=== PATIENT | female | born 1970 ===

== ENCOUNTER 2017-11-10 11:27 | Emergency (ER) | payer OTHER ==
[2017-11-10 11:40] VITALS: BMI 25.0
[2017-11-10 11:41] VITALS: BP 128/67; PULSE 97; RESP 20; TEMP 98.2; O2SAT 99
[2017-11-10 12:47] LABS: BASO % 0.4 % (0.0-2.0); EOS % 0.1 % (0.0-4.0); HEMOGLOBIN 12.9 g/dL (12.0-16.0); LYMPH # 2.7 K/uL (1.0-4.3); LYMPH % 28.4 % (20.0-40.0); MEAN CELL VOLUME 94.5 fl (81.0-99.0); MEAN CORPUSCULAR HEMOGLOBIN 32.4 pg (27.0-31.0); MEAN CORPUSCULAR HGB CONC 34.3 g/dL (33.0-37.0); MEAN PLATELET VOLUME 7.6 fl (7.2-11.7); MONO # 0.3 K/uL (0.0-0.8); MONO % 3.3 % (0.0-10.0); NEUT # 6.5 K/uL (1.8-7.0); NEUT % 67.8 % (50.0-75.0); RBC 3.98 Mil/uL (3.80-5.20); RED CELL DISTRIBUTION WIDTH 12.7 % (11.5-14.5); WHITE BLOOD COUNT 9.6 K/uL (4.8-10.8)
[2017-11-10 12:59] LABS: BLOOD UREA NITROGEN 14 mg/dl (7-17); CALCIUM 10.2 mg/dL (8.4-10.2); GFR AFRICAN-AMERICAN > 60; GFR NON-AFRICAN AMERICAN > 60
[2017-11-10 13:37] LABS: BARBITURATES, UR NEGATIVE (NEGATIVE); BENZODIAZEPINES, UR NEGATIVE (NEGATIVE); OPIATES, UR NEGATIVE (NEGATIVE); PHENCYCLIDINE, UR NEGATIVE (NEGATIVE)
[2017-11-10] MEDS ORDERED: Sodium Chloride 0.9% 1,000 ML IV STA (13:42)
--- NOTE | 2017-11-10 14:37 | ED PDOC ---
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 States her symptoms have been disrupting her sleep and she has been feeling anxious due to her symptoms. She denies any shortness of breath, syncope , fever, cough. State she has been using Motrin without relief of symptoms. No injuries or trauma. Past Medical History Reviewed: Historical Data, Nursing Documentation, Vital Signs Vital Signs: Last Vital Signs Temp 98.2 F 11/10/17 11:40 Pulse 97 H 11/10/17 11:40 Resp 20 11/10/17 12:00 BP 128/67 11/10/17 11:40 Pulse Ox 99 11/10/17 11:40 - Medical History PMH: Anxiety, Depression Denies: Diabetes, Hepatitis, HIV, HTN, Seizures, Sexually Transmitted Disease - Surgical History Other surgeries: Breast implants and removal. - Family History Family History: States: Unknown Family Hx - Social History Alcohol: Occasional - Home Medications Home Medications: Ambulatory Orders Medication Instructions Recorded Famotidine [Pepcid] 1 tab PO BID #30 tab 01/24/15 Ondansetron [Zofran Odt] 4 mg PO ASDIR PRN #15 odt 09/24/15 traZODone [trazODONE HYDROCHLORIDE] 50 mg PO ASDIR #15 tab 09/24/15 Cyclobenzaprine [Cyclobenzaprine 10 mg PO Q8 PRN #9 tab 11/10/17 HCl] Naproxen [Naprosyn] 500 mg PO BID PRN #14 tablet 11/10/17 - Allergies Allergies/Adverse Reactions: Allergies Allergy/AdvReac Type Severity Reaction Status Date / Time No Known Allergies Allergy Unverified 01/24/15 04:26 Review of Systems ROS Statement: Except As Marked, All Systems Reviewed And Found Negative (as per HPI) Constitutional: Negative for: Fever Respiratory: Negative for: Cough Musculoskeletal: Positive for: Neck Pain (left sided), Shoulder Pain (left sided ), Arm Pain (left sided) Neurological: Negative for: Other (syncope) Psych: Positive for: Anxiety Physical Exam - Reviewed Nursing Documentation Reviewed: Yes Vital Signs Reviewed: Yes - Physical Exam Appears: Positive for: Non-toxic Head Exam: Positive for: ATRAUMATIC, NORMAL INSPECTION, NORMOCEPHALIC Skin: Positive for: Normal Color Eye Exam: Positive for: Normal appearance Neck: Positive for: Supple (+ left paraspinal tenderness) Cardiovascular/Chest: Positive for: Regular Rate, Rhythm Respiratory: Positive for: Normal Breath Sounds. Negative for: Wheezing Extremity: Positive for: Tenderness (left trapezius hypertenicity, tenderness with ROM of left shoulder). Negative for: Deformity, Swelling Neurologic/Psych: Positive for: Alert, Oriented, Mood/Affect (anxious appearing) . Negative for: Motor/Sensory Deficits - Laboratory Results Result Diagrams: 11/10/17 12:40 11/10/17 12:40 - ECG O2 Sat by Pulse Oximetry: 99 (RA) Pulse Ox Interpretation: Normal Medical Decision Making Medical Decision Making: Impression: Musculoskeletal pain Plan: -- CT C-spine w/o contrast -- Labs -- EKG -- Toradol 30mg IV -- Ativan 1mg IV -- Tylenol 650 mg PO -- IV Fluids labs reviewed and unremarkable Accession No. : [id number] Patient Name / ID : SUZY ANDREA / [id number] Exam Date : 11/10/2017 14:20:45 ( Approved ) Study Comment : Sex / Age : F / 47Y Creator : Uri Meraz MD Dictator : Uri Meraz MD Business Solution Analyst : Vascular Nurse : Uri Meraz MD Approver2 : Report Date : 11/10/2017 14:50:11 My Comment : PROCEDURE: CT scan cervical spine 11/10/2017 HISTORY: Neck pain. COMPARISON: No prior study available for comparison TECHNIQUE: Contiguous helical/transaxial computed tomography images were obtained of the cervical spine without the use of intravenous contrast. Coronal and sagittal reformatted images were created and reviewed. Radiation dose: Total exam DLP = 391.2 mGy-cm. This CT exam was performed using one or more of the following dose reduction techniques: Automated exposure control, adjustment of the mA and/or kV according to patient size, and/or use of iterative reconstruction technique. . FINDINGS: VERTEBRAE: The current study reveals no acute compression fractures no retropulsed fragments. Vertebral bodies exhibit normal stature. There is straightening of the normal cervical lordosis which could be due to patient positioning gantry however underlying element of muscle spasm may contribute. DISCS/SPINAL CANAL/NEURAL FORAMINA: Minor multilevel degenerative spondylosis. At the C6-C7 level, there is disc minor disc space narrowing. Moderate-sized central and left parasagittal disc herniation compresses the ventral surface of the thecal sac presumably compresses the ventral surface of the cord however due to streak and beam hardening artifact arising from dense clavicles and shoulder girdles evaluation somewhat limited. Central canal appears slightly narrowed at this level. Uncovertebral joints are slightly overgrown. Exit foramina appear adequate. At the C5-C6 level, there is disc space narrowing with small osteophytic ridge disk complex that minimally flattens the ventral surface of the thecal sac though does not cause significant canal stenosis. The overall central canal is adequate. Minimal degenerative changes of the uncovertebral joints. Exit foramina are also marginal to adequate. . At the C4-C5 level, there is adequate disc height. Small central and bilateral disc bulge flattens the ventral surface of the thecal sac though does not cause significant canal stenosis nor cord compression. The at exit foramina appear adequate. At the C3-C4 level, there is also minimal minimal disc space narrowing. Small central and bilateral disc bulge ridge complex flattens the ventral surface of the thecal sac and results in minimal canal narrowing. No significant cord compression so far as can be seen as streak and beam hardening artifact arising from dental amalgam limits evaluation of the canal. Exit foramina appear adequate. At the C2-C3 level, there minimal anterior disc space narrowing. Small central and bilateral disc bulge flattens the ventral surface of the thecal sac though does not cause canal stenosis nor cord compression. The exit foramina appear adequate. Narrowing. PARASPINAL SOFT TISSUES: Paraspinal soft tissues unremarkable OTHER FINDINGS: None. IMPRESSION: No acute fractures. Mild degenerative spondylosis multilevel degenerative spondylosis most notably affecting C6 C7 level where there is a moderate-sized central and left parasagittal disc herniation at compresses the ventral surface of the thecal sac. See above discussion for additional details and findings. 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 Followup neurosurgery/ [facility] connect for re-eval to assure no new radicular or neuro symptoms. Scribe Attestation: Documented by Georgie Monroe acting as a scribe for James Argueta III, DO. Provider Attestation: All medical record entries made by the Scribe were at my direction and personally dictated by me. I have reviewed the chart and agree that the record accurately reflects my personal performance of the history, physical exam, medical decision making, and the department course for this patient. I have also personally directed, reviewed, and agree with the discharge instructions and disposition. Disposition - Clinical Impression Clinical Impression: Bulging of cervical intervertebral disc, Neck pain, Radicular pain - Patient ED Disposition Is Patient to be Admitted: No Counseled Patient/Family Regarding: Studies Performed, Diagnosis, Need For Followup - Disposition Referrals: [facility] [Outside] Srini Reynolds MD [Staff Provider] - [facility] [place] [Outside] Disposition: Routine/Home Disposition Time: 15:29 Condition: STABLE Additional Instructions: Return to ER for any worse or new symptoms/\ Prescriptions: Cyclobenzaprine [Cyclobenzaprine HCl] 10 mg PO Q8 PRN #9 tab PRN Reason: Muscle Spasm Naproxen [Naprosyn] 500 mg PO BID PRN #14 tablet PRN Reason: Pain, Moderate (4-7) Instructions: Cervical Disc Herniation (ED), Cervical Radiculopathy (ED) Forms: [employer] (Tajik) Print Language: KAZAKH
--- NOTE | 2017-11-10 14:51 | CT ---
PROCEDURE: CT scan cervical spine 11/10/2017 HISTORY: Neck pain. COMPARISON: No prior study available for comparison TECHNIQUE: Contiguous helical/transaxial computed tomography images were obtained of the cervical spine without the use of intravenous contrast. Coronal and sagittal reformatted images were created and reviewed. Radiation dose: Total exam DLP = 391.2 mGy-cm. This CT exam was performed using one or more of the following dose reduction techniques: Automated exposure control, adjustment of the mA and/or kV according to patient size, and/or use of iterative reconstruction technique. . FINDINGS: VERTEBRAE: The current study reveals no acute compression fractures no retropulsed fragments. Vertebral bodies exhibit normal stature. There is straightening of the normal cervical lordosis which could be due to patient positioning gantry however underlying element of muscle spasm may contribute. DISCS/SPINAL CANAL/NEURAL FORAMINA: Minor multilevel degenerative spondylosis. At the C6-C7 level, there is disc minor disc space narrowing. Moderate-sized central and left parasagittal disc herniation compresses the ventral surface of the thecal sac presumably compresses the ventral surface of the cord however due to streak and beam hardening artifact arising from dense clavicles and shoulder girdles evaluation somewhat limited. Central canal appears slightly narrowed at this level. Uncovertebral joints are slightly overgrown. Exit foramina appear adequate. At the C5-C6 level, there is disc space narrowing with small osteophytic ridge disk complex that minimally flattens the ventral surface of the thecal sac though does not cause significant canal stenosis. The overall central canal is adequate. Minimal degenerative changes of the uncovertebral joints. Exit foramina are also marginal to adequate. . At the C4-C5 level, there is adequate disc height. Small central and bilateral disc bulge flattens the ventral surface of the thecal sac though does not cause significant canal stenosis nor cord compression. The at exit foramina appear adequate. At the C3-C4 level, there is also minimal minimal disc space narrowing. Small central and bilateral disc bulge ridge complex flattens the ventral surface of the thecal sac and results in minimal canal narrowing. No significant cord compression so far as can be seen as streak and beam hardening artifact arising from dental amalgam limits evaluation of the canal. Exit foramina appear adequate. At the C2-C3 level, there minimal anterior disc space narrowing. Small central and bilateral disc bulge flattens the ventral surface of the thecal sac though does not cause canal stenosis nor cord compression. The exit foramina appear adequate. Narrowing. PARASPINAL SOFT TISSUES: Paraspinal soft tissues unremarkable OTHER FINDINGS: None. IMPRESSION: No acute fractures. Mild degenerative spondylosis multilevel degenerative spondylosis most notably affecting C6 C7 level where there is a moderate-sized central and left parasagittal disc herniation at compresses the ventral surface of the thecal sac. See above discussion for additional details and findings.
[2017-11-10 15:14] LABS: SQUAMOUS EPITHIAL 10 /hpf (0-5); URINE BACTERIA RARE (<OCC); URINE BILIRUBIN NEGATIVE (NEGATIVE); URINE BLOOD NEGATIVE (NEGATIVE); URINE CLARITY CLOUDY (Clear); URINE COLOR YELLOW (YELLOW); URINE GLUCOSE (UA) NEG (Normal); URINE LEUKOCYTE ESTERASE TRACE Leu/uL (Negative); URINE NITRATE NEGATIVE (NEGATIVE); URINE PROTEIN NEGATIVE (NEGATIVE); URINE UROBILINOGEN 0.2-1.0 mg/dL (0.2-1.0)
--- NOTE | 2017-11-11 09:38 | CARD ---
APPROVED REPORT EKG Measurement Heart [id number] <Conclusion> Normal sinus rhythm Normal ECG
== END 2017-11-10 16:27 | disposition home or self-care (01) ==
LOC: H.ER 11:27
DX: M50.20 Other cervical disc displacement, unspecified cervical region (principal); M54.12 Radiculopathy, cervical region; F32.9 Major depressive disorder, single episode, unspecified; F41.9 Anxiety disorder, unspecified
CPT/HCPCS: 72125; 80048; 80324; 80345; 80346; 80349; 80353; 80358; 80361; 81003; 81025; 83992; 84484; 85025; 93005; 96374; 99283; J1885; J2060; J7040

== ENCOUNTER 2019-01-16 06:49 | Emergency (ER) | payer OTHER ==
[2019-01-16 06:54] VITALS: BP 108/68; PULSE 97; RESP 20; TEMP 99.3; O2SAT 100; BMI 26.5
--- NOTE | 2019-01-16 07:26 | ED PDOC ---
HPI: Abdomen Time Seen by Provider: 01/16/19 07:05 Chief Complaint (Provider): Abdominal Pain History Per: Patient History/Exam Limitations: no limitations Onset/Duration Of Symptoms: Days (x3) Current Symptoms Are (Timing): Still Present Location Of Pain/Discomfort: LLQ Quality Of Discomfort: Sharp Associated Symptoms: Nausea. denies: Vomiting, Diarrhea, Urinary Symptoms Additional Complaint(s): 48 year old female with no significant past medical history who is presenting to the ED for evaluation of sharp left lower quadrant abdominal pain ongoing for 3 days. Patient states that pain is associated with nausea but denies any vomiting, diarrhea, or urinary symptoms. She offers no other medical complaints at this time. Of note, patients LNMP was 2 years ago. PMD: none provided Last Menstral Period: 2 years ago Past Medical History Reviewed: Historical Data, Nursing Documentation, Vital Signs Vital Signs: Last Vital Signs Temp 99.3 F 01/16/19 06:53 Pulse 97 H 01/16/19 06:53 Resp 20 01/16/19 06:53 BP 108/68 01/16/19 06:53 Pulse Ox 100 01/16/19 06:53 - Medical History PMH: Anxiety, Depression Denies: Diabetes, Hepatitis, HIV, HTN, Seizures, Sexually Transmitted Disease - Surgical History Surgical History: No Surg Hx - Family History Family History: States: Unknown Family Hx - Social History Current smoker - smoking cessation education provided: No Alcohol: None Drugs: Denies - Immunization History Hx Tetanus Toxoid Vaccination: No Hx Influenza Vaccination: Yes Hx Pneumococcal Vaccination: No - Home Medications Home Medications: Ambulatory Orders Medication Instructions Recorded traZODone [trazODONE HYDROCHLORIDE] 50 mg PO ASDIR #15 tab 09/24/15 Cyclobenzaprine [Cyclobenzaprine 10 mg PO DAILY PRN #10 tab 02/09/18 HCl] Gabapentin 300 mg PO TID 02/09/18 Naproxen [Naprosyn] 500 mg PO BID PRN #14 tablet 02/09/18 Dicyclomine [Dicyclomine HCl] 10 mg PO Q8 #10 cap 01/16/19 - Allergies Allergies/Adverse Reactions: Allergies Allergy/AdvReac Type Severity Reaction Status Date / Time No Known Allergies Allergy Verified 02/09/18 16:43 Review of Systems ROS Statement: Except As Marked, All Systems Reviewed And Found Negative Gastrointestinal: Positive for: Nausea, Abdominal Pain. Negative for: Vomiting, Diarrhea Genitourinary Female: Negative for: Dysuria, Frequency, Hematuria Physical Exam - Reviewed Nursing Documentation Reviewed: Yes Vital Signs Reviewed: Yes - Physical Exam Appears: Positive for: Non-toxic, No Acute Distress Head Exam: Positive for: ATRAUMATIC, NORMAL INSPECTION, NORMOCEPHALIC Skin: Positive for: Normal Color, Warm, DRY Eye Exam: Positive for: EOMI, Normal appearance, PERRL Neck: Positive for: Normal Cardiovascular/Chest: Positive for: Regular Rate, Rhythm. Negative for: Murmur Respiratory: Positive for: Normal Breath Sounds. Negative for: Respiratory Distress Gastrointestinal/Abdominal: Positive for: Soft, Tenderness (to left lower quadrant ), Guarding. Negative for: Mass, Distended, Rebound Back: Positive for: Normal Inspection. Negative for: L CVA Tenderness, R CVA Tenderness, Vertebral Tenderness Extremity: Positive for: Normal ROM. Negative for: Deformity, Swelling Neurological/Psych: Positive for: Awake, Alert, Normal Tone, Oriented. Negative for: Motor/Sensory Deficits - Laboratory Results Result Diagrams: 01/16/19 07:40 01/16/19 07:40 - ECG O2 Sat by Pulse Oximetry: 100 (RA) Pulse Ox Interpretation: Normal Medical Decision Making Medical Decision Making: Time: 7:18 Impression: Abdominal Pain Plan: --Will Obtain blood work including CMP and CBC --CT Abd/Pelvis --Toradol 30 mg IVP --ED Urine Dipstick --ED Urine Scribe Attestation: Documented by Aylin Currie, acting as a scribe for Joaquin Cross MD. Provider Scribe Attestation: All medical record entries made by the Scribe were at my direction and personally dictated by me. I have reviewed the chart and agree that the record accurately reflects my personal performance of the history, physical exam, medical decision making, and the department course for this patient. I have also personally directed, reviewed, and agree with the discharge instructions and disposition. Disposition - Clinical Impression Clinical Impression: Colitis - Patient ED Disposition Is Patient to be Admitted: No Counseled Patient/Family Regarding: Studies Performed, Diagnosis, Need For Followup, Rx Given - Disposition Referrals: Non [facility] Provider, [Primary Care Provider] - Ad Salcido MD [Staff Provider] - Disposition: Routine/Home Disposition Time: 11:02 Condition: FAIR Prescriptions: Dicyclomine [Dicyclomine HCl] 10 mg PO Q8 #10 cap Instructions: Colitis Print Language: CONGOLESE
[2019-01-16 08:57] LABS: BASO % 0.3 % (0.0-2.0); HEMOGLOBIN 12.6 g/dL (12.0-16.0); LYMPH # 0.9 K/uL (1.0-4.3); LYMPH % 7.6 % (20.0-40.0); MEAN CELL VOLUME 96.1 fl (81.0-99.0); MEAN CORPUSCULAR HEMOGLOBIN 32.2 pg (27.0-31.0); MEAN CORPUSCULAR HGB CONC 33.5 g/dL (33.0-37.0); MEAN PLATELET VOLUME 8.8 fl (7.2-11.7); MONO # 0.4 K/uL (0.0-0.8); MONO % 3.5 % (0.0-10.0); NEUT # 10.2 K/uL (1.8-7.0); NEUT % 88.6 % (50.0-75.0); NRBC % 0.1 % (0.0-0.0); PLATELET COUNT 322 K/uL (130-400); RBC 3.92 Mil/uL (3.80-5.20); RED CELL DISTRIBUTION WIDTH 13.3 % (11.5-14.5); WHITE BLOOD COUNT 11.5 K/uL (4.8-10.8)
[2019-01-16 09:16] LABS: BLOOD UREA NITROGEN 13 mg/dl (7-17); CALCIUM 9.7 mg/dL (8.4-10.2); GFR NON-AFRICAN AMERICAN > 60
[2019-01-16 09:28] LABS: ALB/GLOB RATIO 1.5 (1.0-2.1); ALBUMIN 4.6 g/dL (3.5-5.0); ALT/SGPT 23 U/L (9-52); AST/SGOT 70 U/L (14-36)
[2019-01-16] MEDS ORDERED: Sodium Chloride 0.9% 50 ML IV ONE (09:48)
[2019-01-16] MEDS ORDERED: Iohexol 300 100 ML IJ ONE (09:48)
--- NOTE | 2019-01-16 10:44 | CT ---
Date of service: 01/16/2019 PROCEDURE: CT Abdomen and Pelvis with contrast HISTORY: Abd pain COMPARISON: None available. TECHNIQUE: CT scan of the abdomen and pelvis was performed after administration of intravenous contrast. Oral contrast was not administered. Coronal and sagittal reformatted images were obtained. Contrast dose: 100 mL Omnipaque 300 Radiation dose: Total exam DLP = 505.94 mGy-cm. This CT exam was performed using one or more of the following dose reduction techniques: Automated exposure control, adjustment of the mA and/or kV according to patient size, and/or use of iterative reconstruction technique. FINDINGS: LOWER THORAX: The visualized lungs are clear. LIVER: Normal in size with homogeneous enhancement. There is a 9 mm simple cyst in the right posterior hepatic lobe. No ductal dilatation. GALLBLADDER AND BILE DUCTS: Well distended. No calcified gallstones, wall thickening or pericholecystic fluid. PANCREAS: Normal in size with homogeneous enhancement. No gross lesion or ductal dilatation. SPLEEN: Normal in size and appearance. ADRENALS: No discrete nodule. KIDNEYS AND URETERS: Normal in size with homogeneous enhancement. No hydronephrosis. No solid mass. VASCULATURE: No aortic aneurysm. There are no aortic atherosclerotic calcifications or mural plaque present. BOWEL: Evaluation of the bowel is limited in the absence of oral contrast. The proximal small bowel loops are normal in caliber. There are fluid filled normal caliber mid and distal small bowel loops and there is fluid in the ascending colon with mucosal enhancement. There is large amount of stool in the descending and left hemicolon. No bowel wall thickening or obstruction. APPENDIX: Normal appendix. PERITONEUM: No free fluid. No free air. LYMPH NODES: There are prominent subcentimeter lymph nodes in the right lower quadrant. BLADDER: Partially decompressed and grossly normal in appearance. REPRODUCTIVE: The uterus is normal in size. BONES: No acute fracture. Within normal limits for the patient's age. OTHER FINDINGS: There are innumerable nodular soft tissue densities in both gluteal regions likely related to augmentation surgery. IMPRESSION: Fluid-filled normal caliber distal small bowel loops and fluid in the ascending colon most compatible with nonspecific infectious/inflammatory enterocolitis. Moderate amount of stool in the transverse and left hemicolon. No evidence for bowel obstruction.
--- NOTE | 2019-01-16 10:58 | US ---
Date of service: 01/16/2019 HISTORY: LLQ pain 48-year-old female who is LMP was 3 years ago according to the history. Is having left lower quadrant pain for 2 to 3 weeks. COMPARISON: None available. TECHNIQUE: Transvaginal FINDINGS: UTERUS: Measures 7.7 x 4.7 cm. Anteverted in appearance. No fibroid or other mass lesion seen. ENDOMETRIUM: Measures 10 mm in diameter. In the fundal level of the intrauterine cavity sliver like anechoic fluid is noted. This could represent some liquified mucus. Patient's LMP 3 years ago is noted. CERVIX: No cervical masses seen. RIGHT OVARY: Measures 2.3 x 2.1 x 1.1 cm. No solid mass. Normal flow. LEFT OVARY: Measures 3.3 x 2.5 x 2.6 cm. No solid mass. Normal flow. A simple appearing left ovarian cyst measuring 2.1 x 1.9 x 1.7 cm in size is noted. A smaller adjacent left ovarian follicle is noted measuring 1.1 x 0.9 x 0.6 cm. FREE FLUID: No significant free fluid noted. OTHER FINDINGS: None. IMPRESSION: Sliver like fluid and/or mucous within endometrial cavity as detailed above-nonspecific. No uterine masses seen. Endometrium slightly prominent and patient's 3 years postmenopausal status. No history of vaginal bleeding offered. Consider rechecking this in 6 to 8 weeks. Benign-appearing left ovarian follicles and or small cysts
[2019-01-16 13:06] LABS: BANDS 3 % (0-2); LYMPHOCYTE 5 % (20-50); MONOCYTE 6 % (0-10); NEUTROPHIL 85 % (42-75); REACTIVE LYMPHOCYTES 1 % (0-0); TOTAL CELLS COUNTED 100
[2019-01-16 13:07] LABS: PLATELET ESTIMATE NORMAL (NORMAL)
== END 2019-01-16 11:12 | disposition home or self-care (01) ==
LOC: SUPCPDRO 06:49 → H.ER 06:49
DX: K52.9 Noninfective gastroenteritis and colitis, unspecified (principal)
CPT/HCPCS: 74177; 76830; 80053; 81025; 85025; 96374; 99283; J1885; Q9967